=== PATIENT | female | born 1985 | race Two or more races ===

== ENCOUNTER 2019-03-01 10:34 | Emergency (ER) | payer OTHER ==
[~2019-03-01] VITALS: Ht 154.9 cm; Wt 50.8 kg
--- NOTE | 2019-03-01 10:55 | NUR ---
PT C/O 10/10 CRAMPING UPPER ABDOMINAL PAIN THAT RADIATES TO THE UPPER NACK SINCE YESTERDAY EVENING; PT ALSO C/O N/V WITHOUT BLOOD IN EMESIS. PT NOT VOMITING AT THIS TIME BUT FEELS NAUSEATED. ABDOMEN SOFT AND NONDISTENDED, UPPER QUADRANTS TENDER ON PALPATION. BOWEL SOUNDS PRESENT IN ALL 4 QUADRANTS. AAOX4. BREATHS EVEN AND UNLABORED. O2 SAT 98% ON RA. LUNGS CTA. SAFETY PRECAUTIONS IN PLACE. WILL CONTINUE TO MONITOR. PENDING EVAL AND ORDERS.
[2019-03-01] MEDS ORDERED: ONDANSETRON HCL/PF 4 MG/2 ML VIAL IVP ONE (11:30)
[2019-03-01] MEDS ORDERED: IV NS 0.9% 1,000 ML BAG IV ONE (11:30)
[2019-03-01] MEDS ORDERED: LIDOCAINE VISCOUS 2% UD 15 ML UDC MM ONE (11:30)
[2019-03-01] MEDS ORDERED: ONDANSETRON HCL/PF 4 MG/2 ML VIAL ONE (11:30)
[2019-03-01] MEDS ORDERED: MAG HYDROX/AL HYDROX/SIMETH 30 ML UDC PO ONE (11:30)
[2019-03-01 11:32] LABS: BASOPHILS % (AUTO) 0.3 % (0.0-2.0); EOSINOPHILS % (AUTO) 0.9 % (0.0-6.0); HEMATOCRIT 41 % (33-45); HEMOGLOBIN 13.8 g/dL (11.5-14.8); LYMPHOCYTES # (AUTO) 0.5 /CMM (0.8-4.8); LYMPHOCYTES % (AUTO) 5.9 % (20.0-44.0); MEAN CORPUSCULAR HGB CONC 34 g/dl (31.0-36.0); MEAN CORPUSCULAR VOLUME 91 fL (82-100); MONOCYTES # (AUTO) 0.3 /CMM (0.1-1.30); MONOCYTES % (AUTO) 4.1 % (2.0-12.0); NEUTROPHILS % (AUTO) 88.8 % (43.0-81.0); PLATELET COUNT (AUTO) 227 /CMM (150-450); RED BLOOD CELL COUNT(AUTO) 4.45 MIL/uL (4.0-5.2); WHITE BLOOD COUNT (AUTO) 7.8 K/uL (4.3-11.0)
[2019-03-01] MEDS ORDERED: MAG HYDROX/AL HYDROX/SIMETH 30 ML UDC ONE (11:37)
[2019-03-01] MEDS ORDERED: LIDOCAINE VISCOUS 2% UD 15 ML UDC ONE (11:39)
[2019-03-01 11:40] LABS: CALCIUM, SERUM 8.1 mg/dL (8.5-10.1); CREATININE 0.6 mg/dL (0.6-1.3); POTASSIUM 3.3 mmol/L (3.5-5.1)
[2019-03-01 11:45] LABS: ALBUMIN 3.8 g/dL (3.4-5.0); BILIRUBIN,DIRECT 0.1 mg/dL (0.0-0.2); BILIRUBIN,TOTAL 0.6 mg/dL (0.2-1.0); TOTAL PROTEIN, SERUM 7.5 g/dL (6.4-8.2)
[2019-03-01] MEDS ORDERED: diphenhydrAMINE HCL 50 MG/ML VIAL ONE (12:00)
--- NOTE | 2019-03-01 12:00 | NUR ---
PT BEGAN HAVING RED RASH ON FACE AND ITCHING "ALL OVER" MD MADE AWARE, 50MG BENADRYL PULLED AND GIVEN IV. AIRWAY UNOBSTRUCTED AND NOT SWOLLEN, BREATHS EVEN AND UNLABORED. O2 SAT 100%. ROCK WOOL INSULATOR SHOWS NSR 90BPM. SAFETY PRECAUTIONS IN PLACE. WILL CONTINUE TO MONITOR.
[2019-03-01] MEDS ORDERED: SUCRALFATE 1 G/10 ML UDC ONE (12:19)
[2019-03-01] MEDS ORDERED: diphenhydrAMINE HCL 50 MG/ML VIAL IV ONE (12:30)
[2019-03-01] MEDS ORDERED: SUCRALFATE 1 G/10 ML UDC PO ONE (12:30)
--- NOTE | 2019-03-01 13:00 | NUR ---
PT REPORTS PAIN IS NOW GONE AND ITCHING HAS DECREASED AND IS NOW TOLERABLE. PT AAOX4. BREATHS EVEN AND UNLABORED. VS WNL. PT AMBULATED TO AND FROM BATHROOM WITH STEADY GAIT. NO S/S DISTRESS. WILL CONTINUE TO MONITOR. PENDING DISPO.
[2019-03-01] MEDS ORDERED: FAMOTIDINE (20 MG) 20 MG TABLET ONE (14:13)
--- NOTE | 2019-03-01 14:19 | NUR ---
PT VERBALIZED UNDERSTANDING OF DISCHARGE AND RX INSTRUCTIONS. AAOX4. BREATHS EVEN AND UNLABORED. PT NO LONGER NAUSEATED AND DENIES ABDOMINAL PAIN. ALL QUESTIONS ANSWERED. IV DCD. ARM BAND REMOVED. ALL QUESTIONS ANSWERED. BELONGINGS WITH PT.
[2019-03-01 14:22] VITALS: BP 113/80
[2019-03-01] MEDS ORDERED: FAMOTIDINE (20 MG) 20 MG TABLET PO ONE (14:30)
== END 2019-03-01 14:15 | disposition home or self-care (01) ==
LOC: ER 10:35
DX: K29.70 Gastritis, unspecified, without bleeding (principal); K21.9 Gastro-esophageal reflux disease without esophagitis; Z90.49 Acquired absence of other specified parts of digestive tract
CPT/HCPCS: 36415; 80048; 80076; 83690; 85025; 96361; 96374; 96375; 99284; J1200; J2405; J7030